=== PATIENT | male | born 1970 | race Caucasian/White ===

== ENCOUNTER 2018-12-22 11:40 | Inpatient (IN) | payer OTHER ==
[~2018-12-22] VITALS: Ht 175.3 cm; Wt 80.3 kg
[2018-12-22] VITALS (25 sets, daily range): BP systolic 71–166; BP diastolic 41–138
[2018-12-22] MEDS ORDERED: VANCOMYCIN 1 G PREMIX 200 ML IV ONE (12:15)
[2018-12-22] MEDS ORDERED: PIPERACILLIN/TAZ 3.375G PREMIX 50 ML IV ONE (12:15)
[2018-12-22] MEDS ORDERED: SODIUM CHLORIDE 0.9% 1000ML BAG (SEPSIS BOLUS) IV ONE (12:15)
[2018-12-22] MEDS ORDERED: LEVOFLOXACIN 750MG PREMIX 150 ML IV ONE (12:15)
[2018-12-22] MEDS ORDERED: PROPOFOL 10MG/ML 100ML 100 ML IV PRN (12:30)
[2018-12-22 12:33] LABS: BASOPHILS % 0.1 % (0.0-2.0); EOSINOPHILS % 0.2 % (0.0-5.0); HEMATOCRIT. 55.4 % (42.0-52.0); HEMOGLOBIN. 17.9 g/dL (14.0-18.0); LYMPHOCYTES % 9.2 % (20.0-50.0); MEAN CORPUSCULAR HEMOGLOBIN 28.2 pg (28.0-32.0); MEAN CORPUSCULAR VOLUME 86.9 fL (80.0-94.0); MEAN PLATELET VOLUME 8.1 fl (7.4-10.4); MONOCYTES % 4.9 % (2.0-8.0); NEUTROPHILS % 85.6 % (40.0-76.0); PLATELET 254 x1000/uL (130-400); RED BLOOD CELL COUNT 6.37 mill/uL (4.7-6.1); RED CELL DISTRIBUTION WIDTH 14.9 % (11.6-14.6)
[2018-12-22 12:39] LABS: CHLORIDE 105 mEq/L (98-107)
[2018-12-22 12:40] LABS: PROTHROMBIN TIME 10.3 sec (9.1-11.1)
[2018-12-22 12:43] LABS: ETHANOL BLOOD < 10 mg/dL
[2018-12-22 12:46] LABS: LDL CHOLESTEROL 96 mg/dL (5-100)
[2018-12-22 12:48] LABS: CREATINE KINASE 796 IU/L (39-308)
[2018-12-22 13:21] LABS: BG BASE EXCESS -8.1 mmol/L (-2.0-2.0); BG CARBOXYHEMOGLOBIN 2.4 % (0.5-1.5); BG DEOXYHEMOGLOBIN 2.5 % (0.0-5.0); BG FRACTION INSPIRED OXYGEN 100; BG HCO3 ACT 23.4 mmol/L (22.0-26.0); BG METHEMOGLOBIN 0.3 % (0.0-1.5); BG OXYGEN SATURATION 97.4 % (92.0-98.5); BG OXYHEMOGLOBIN 94.8 % (94.0-97.0); BG PCO2 73.1 mmHg (35.0-45.0); BG PH 7.124 (7.350-7.450); BG PO2 100.2 mmHg (75.0-100.0); BG SAMPLE SITE LEFT RADIAL; BG TIDAL VOLUME(mL) 475 mL; BG TOTAL HEMOGLOBIN 19.2 g/dL (12.0-18.0); BG VENT MODE VENT - A/C; BG VENT RATE 18 set
[2018-12-22 13:46] LABS: CLARITY URINE CLEAR (CLEAR); COLOR URINE YELLOW (YELLOW); KETONES URINE TRACE (NEGATIVE); LEUKOCYTE ESTERASE URINE NEGATIVE (NEGATIVE); NITRITE URINE NEGATIVE (NEGATIVE); OCCULT BLOOD URINE 2+ (NEGATIVE); PROTEIN URINE 2+ (NEGATIVE); SPECIFIC GRAVITY URINE 1.022 (1.005-1.030); UROBILINOGEN URINE 0.2 E.U./dL (0.2-1.0)
[2018-12-22 14:17] LABS: *AMPHETAMINES SCREEN URINE NEGATIVE (NEGATIVE); *BARBITURATES SCREEN URINE NEGATIVE (NEGATIVE); *BENZODIAZEPINES SCREEN URINE PRESUMTIVE POSITIVE (NEGATIVE); *COCAINE SCREEN URINE NEGATIVE (NEGATIVE); CANNABINOID URINE SCREEN PRESUMTIVE POSITIVE (NEGATIVE); METHADONE URINE SCREEN PRESUMTIVE POSITIVE (NEGATIVE); OPIATES URINE SCREEN PRESUMTIVE POSITIVE (NEGATIVE); PHENCYCLIDINE URINE SCREEN NEGATIVE (NEGATIVE)
[2018-12-22 15:06] LABS: BG BASE EXCESS -18.5 mmol/L (-2.0-2.0); BG CARBOXYHEMOGLOBIN 2.1 % (0.5-1.5); BG DEOXYHEMOGLOBIN 37.5 % (0.0-5.0); BG FRACTION INSPIRED OXYGEN 100; BG HCO3 ACT 9.8 mmol/L (22.0-26.0); BG METHEMOGLOBIN 0.3 % (0.0-1.5); BG OXYGEN SATURATION 61.6 % (92.0-98.5); BG OXYHEMOGLOBIN 60.1 % (94.0-97.0); BG PCO2 32.5 mmHg (35.0-45.0); BG PH 7.095 (7.350-7.450); BG PO2 < 30.3 mmHg (75.0-100.0); BG SAMPLE SITE RIGHT BRACHIAL; BG TIDAL VOLUME(mL) 500 mL; BG TOTAL HEMOGLOBIN 7.6 g/dL (12.0-18.0); BG VENT MODE VENT - A/C; BG VENT RATE 20 set
[2018-12-22] MEDS ORDERED: ONDANSETRON HCL 4MG/2ML INJ IV PRN (15:15)
[2018-12-22] MEDS ORDERED: ETOMIDATE 2MG/ML 10ML VIAL IV ONE (15:27)
[2018-12-22] MEDS ORDERED: VECURONIUM BROMIDE 10 MG/VIAL IV ONE (15:27)
[2018-12-22 15:49] LABS: BG BASE EXCESS -5.7 mmol/L (-2.0-2.0); BG CARBOXYHEMOGLOBIN 2.3 % (0.5-1.5); BG DEOXYHEMOGLOBIN 2.4 % (0.0-5.0); BG FRACTION INSPIRED OXYGEN 100; BG HCO3 ACT 24.4 mmol/L (22.0-26.0); BG METHEMOGLOBIN 0.2 % (0.0-1.5); BG OXYGEN SATURATION 97.5 % (92.0-98.5); BG OXYHEMOGLOBIN 95.1 % (94.0-97.0); BG PCO2 66.7 mmHg (35.0-45.0); BG PH 7.181 (7.350-7.450); BG PO2 95.7 mmHg (75.0-100.0); BG SAMPLE SITE RIGHT BRACHIAL; BG TIDAL VOLUME(mL) 500 mL; BG VENT MODE VENT - A/C; BG VENT RATE 20 set
[2018-12-22] MEDS ORDERED: IPRATROPIUM/ALBUTEROL 0.5-3(2.5)MG/3ML NEB HHN PRN (16:30)
[2018-12-22 16:37] LABS: HEPATITIS B SURFACE ANTIGEN NEGATIVE
[2018-12-22] MEDS ORDERED: LORAZEPAM 2MG/ML CPJ IV ONE (17:00)
[2018-12-22] MEDS ORDERED: LORAZEPAM 2MG/ML CPJ ONE (17:05)
[2018-12-22 17:07] LABS: HEPATITIS A AB IGM NEGATIVE (NEGATIVE)
[2018-12-22 17:31] LABS: BG BASE EXCESS -6.9 mmol/L (-2.0-2.0); BG CARBOXYHEMOGLOBIN 1.9 % (0.5-1.5); BG DEOXYHEMOGLOBIN 4.1 % (0.0-5.0); BG FRACTION INSPIRED OXYGEN 100; BG HCO3 ACT 25.3 mmol/L (22.0-26.0); BG METHEMOGLOBIN 0.4 % (0.0-1.5); BG OXYGEN SATURATION 95.8 % (92.0-98.5); BG OXYHEMOGLOBIN 93.6 % (94.0-97.0); BG PCO2 83.6 mmHg (35.0-45.0); BG PH 7.098 (7.350-7.450); BG PO2 84.5 mmHg (75.0-100.0); BG SAMPLE SITE RIGHT BRACHIAL; BG TIDAL VOLUME(mL) 500 mL; BG TOTAL HEMOGLOBIN 16.6 g/dL (12.0-18.0); BG VENT MODE VENT - A/C; BG VENT RATE 24 set
[2018-12-22] MEDS ORDERED: IPRATROPIUM/ALBUTEROL 0.5-3(2.5)MG/3ML NEB HHN SCH (18:00)
[2018-12-22] MEDS ORDERED: NOREPINEPHRINE 4 MG in DEXT 5% WATER 246 ML IV ONE (18:30)
[2018-12-22] MEDS ORDERED: NOREPINEPHRINE 4MG/250ML PMX 250 ML IV ONE (18:45)
[2018-12-22 20:51] LABS: BG BASE EXCESS -6.3 mmol/L (-2.0-2.0); BG CARBOXYHEMOGLOBIN 0.9 % (0.5-1.5); BG FRACTION INSPIRED OXYGEN 100; BG HCO3 ACT 21.7 mmol/L (22.0-26.0); BG METHEMOGLOBIN 0.3 % (0.0-1.5); BG OXYGEN SATURATION 89.9 % (92.0-98.5); BG OXYHEMOGLOBIN 88.8 % (94.0-97.0); BG PCO2 52.4 mmHg (35.0-45.0); BG PH 7.235 (7.350-7.450); BG SAMPLE SITE RIGHT BRACHIAL; BG TIDAL VOLUME(mL) 550 mL; BG TOTAL HEMOGLOBIN 16.1 g/dL (12.0-18.0); BG VENT MODE VENT - A/C; BG VENT RATE 26 set
[2018-12-22] MEDS: PROPOFOL 10MG/ML 100ML 100 ML IV PRN (21:18)
[2018-12-22] MEDS: DEXT 5%/0.45% NACL 1000ML 1,000 ML IV SCH (21:18)
[2018-12-22] MEDS: ENOXAPARIN 40MG/0.4ML SYR SUBCUT SCH (21:19)
[2018-12-22] MEDS: PIPERACILLIN/TAZ 3.375G PREMIX 50 ML IV SCH (22:22)
[2018-12-22] MEDS ORDERED: VANCOMYCIN 750 MG PREMIX 150 ML IV SCH (23:00)
[2018-12-23] VITALS (85 sets, daily range): BP systolic 80–144; BP diastolic 38–89
[2018-12-23] MEDS: NOREPINEPHRINE 8 MG in DEXT 5% WATER 492 ML IV PRN ×5 (01:49→20:16)
[2018-12-23] MEDS: IPRATROPIUM/ALBUTEROL 0.5-3(2.5)MG/3ML NEB HHN SCH ×4 (02:24→19:44)
[2018-12-23] MEDS: PIPERACILLIN/TAZ 3.375G PREMIX 50 ML IV SCH ×4 (04:44→21:17)
[2018-12-23] MEDS: PROPOFOL 10MG/ML 100ML 100 ML IV PRN ×3 (05:24→21:22)
[2018-12-23] MEDS: PHENYLEPHRINE 20 MG in DEXT 5% WATER 248 ML IV PRN ×5 (05:51→21:14)
[2018-12-23 06:24] LABS: BASOPHILS % 0.1 % (0.0-2.0); CHLORIDE 107 mEq/L (98-107); EOSINOPHILS % 0.8 % (0.0-5.0); HEMOGLOBIN. 13.9 g/dL (14.0-18.0); LYMPHOCYTES % 18.3 % (20.0-50.0); MEAN CORPUSCULAR HEMOGLOBIN 27.9 pg (28.0-32.0); MEAN CORPUSCULAR VOLUME 84.1 fL (80.0-94.0); MEAN PLATELET VOLUME 8.5 fl (7.4-10.4); MONOCYTES % 7.2 % (2.0-8.0); NEUTROPHILS % 73.6 % (40.0-76.0); PLATELET 227 x1000/uL (130-400); RED BLOOD CELL COUNT 4.99 mill/uL (4.7-6.1); RED CELL DISTRIBUTION WIDTH 14.8 % (11.6-14.6)
[2018-12-23 06:35] LABS: CREATINE KINASE 897 IU/L (39-308)
[2018-12-23 07:59] LABS: BG BASE EXCESS -5.6 mmol/L (-2.0-2.0); BG CARBOXYHEMOGLOBIN 0.3 % (0.5-1.5); BG DEOXYHEMOGLOBIN 3.2 % (0.0-5.0); BG HCO3 ACT 19.5 mmol/L (22.0-26.0); BG METHEMOGLOBIN 0.3 % (0.0-1.5); BG OXYGEN SATURATION 96.8 % (92.0-98.5); BG OXYHEMOGLOBIN 96.2 % (94.0-97.0); BG PCO2 36.9 mmHg (35.0-45.0); BG PH 7.341 (7.350-7.450); BG PO2 81.4 mmHg (75.0-100.0); BG SAMPLE SITE LEFT RADIAL; BG TIDAL VOLUME(mL) 550 mL; BG TOTAL HEMOGLOBIN 14.4 g/dL (12.0-18.0); BG VENT MODE VENT - A/C; BG VENT RATE 30 set
[2018-12-23] MEDS ORDERED: VASOPRESSIN 10 UNIT in SODIUM CHLORIDE 0.9% 99.5 ML IV PRN (08:45)
[2018-12-23] MEDS: VANCOMYCIN 1500MG in DEXTROSE 5% WATER 250ML IV SCH ×2 (11:21→20:19)
[2018-12-23] MEDS: DEXT 5%/0.45% NACL 1000ML 1,000 ML IV SCH (16:20)
[2018-12-23] MEDS: ENOXAPARIN 40MG/0.4ML SYR SUBCUT SCH (20:19)
[2018-12-24] VITALS (90 sets, daily range): BP systolic 89–132; BP diastolic 48–82
[2018-12-24] MEDS: NOREPINEPHRINE 8 MG in DEXT 5% WATER 492 ML IV PRN ×3 (00:47→21:40)
[2018-12-24] MEDS: IPRATROPIUM/ALBUTEROL 0.5-3(2.5)MG/3ML NEB HHN SCH ×4 (02:06→21:10)
[2018-12-24] MEDS: PIPERACILLIN/TAZ 3.375G PREMIX 50 ML IV SCH ×4 (04:04→21:41)
[2018-12-24] MEDS: DEXT 5%/0.45% NACL 1000ML 1,000 ML IV SCH ×3 (04:04→21:41)
[2018-12-24] MEDS: PROPOFOL 10MG/ML 100ML 100 ML IV PRN ×3 (04:04→21:49)
[2018-12-24 06:07] LABS: CHLORIDE 106 mEq/L (98-107)
[2018-12-24 06:09] LABS: HEMATOCRIT. 37.9 % (42.0-52.0); HEMOGLOBIN. 12.8 g/dL (14.0-18.0); MEAN CORPUSCULAR HEMOGLOBIN 27.6 pg (28.0-32.0); MEAN CORPUSCULAR VOLUME 81.9 fL (80.0-94.0); MEAN PLATELET VOLUME 8.5 fl (7.4-10.4); PLATELET 219 x1000/uL (130-400); RED BLOOD CELL COUNT 4.63 mill/uL (4.7-6.1); RED CELL DISTRIBUTION WIDTH 14.4 % (11.6-14.6)
[2018-12-24] MEDS ORDERED: POTASSIUM CHLORIDE 20MEQ/PACKET PO NR (08:45)
[2018-12-24] MEDS: VANCOMYCIN 1 G PREMIX 200 ML IV SCH ×2 (08:55→16:12)
[2018-12-24] MEDS: FAMOTIDINE 20MG/2ML VIAL IV SCH (09:01)
[2018-12-24 10:36] LABS: PLATELET ESTIMATE NORMAL
[2018-12-24] MEDS: MULTIVITAMINS,THER W-MINERALS TABLET NG SCH (11:42)
[2018-12-24] MEDS: FOLIC ACID 1MG TABLET NG SCH (11:42)
[2018-12-24] MEDS: THIAMINE HCL 100MG TABLET NG SCH (11:43)
[2018-12-24] MEDS: LACTULOSE 20G/30ML UDC PO SCH ×2 (13:49→21:41)
[2018-12-24 14:18] LABS: HIV SCREEN 4G Non Reactive (Non Reactive)
[2018-12-24] MEDS: ENOXAPARIN 40MG/0.4ML SYR SUBCUT SCH (21:41)
[2018-12-25] VITALS (69 sets, daily range): BP systolic 82–155; BP diastolic 47–82
[2018-12-25] MEDS: ACETAMINOPHEN 325MG TABLET PO PRN ×2 (00:29→20:15)
[2018-12-25] MEDS: VANCOMYCIN 1 G PREMIX 200 ML IV SCH ×3 (01:02→17:05)
[2018-12-25] MEDS: IPRATROPIUM/ALBUTEROL 0.5-3(2.5)MG/3ML NEB HHN SCH ×3 (02:06→20:19)
[2018-12-25] MEDS: PIPERACILLIN/TAZ 3.375G PREMIX 50 ML IV SCH ×4 (04:29→22:22)
[2018-12-25] MEDS: LACTULOSE 20G/30ML UDC PO SCH ×3 (05:49→22:00)
[2018-12-25 07:28] LABS: HEMATOCRIT. 36.8 % (42.0-52.0); HEMOGLOBIN. 11.9 g/dL (14.0-18.0); MEAN CORPUSCULAR HEMOGLOBIN 27.8 pg (28.0-32.0); MEAN CORPUSCULAR VOLUME 85.6 fL (80.0-94.0); MEAN PLATELET VOLUME 8.6 fl (7.4-10.4); RED CELL DISTRIBUTION WIDTH 15.1 % (11.6-14.6)
[2018-12-25 07:46] LABS: CHLORIDE 105 mEq/L (98-107)
[2018-12-25] MEDS: FAMOTIDINE 20MG/2ML VIAL IV SCH (08:26)
[2018-12-25] MEDS: THIAMINE HCL 100MG TABLET NG SCH (08:26)
[2018-12-25] MEDS: PROPOFOL 10MG/ML 100ML 100 ML IV PRN (08:26)
[2018-12-25] MEDS: FOLIC ACID 1MG TABLET NG SCH (08:26)
[2018-12-25] MEDS: MULTIVITAMINS,THER W-MINERALS TABLET NG SCH (08:26)
[2018-12-25 09:08] LABS: BG CARBOXYHEMOGLOBIN 0.3 % (0.5-1.5); BG DEOXYHEMOGLOBIN 0.8 % (0.0-5.0); BG FRACTION INSPIRED OXYGEN 100; BG HCO3 ACT 22.4 mmol/L (22.0-26.0); BG METHEMOGLOBIN 0.3 % (0.0-1.5); BG OXYGEN SATURATION 99.2 % (92.0-98.5); BG OXYHEMOGLOBIN 98.6 % (94.0-97.0); BG PCO2 29.2 mmHg (35.0-45.0); BG PH 7.502 (7.350-7.450); BG SAMPLE SITE RIGHT RADIAL; BG TIDAL VOLUME(mL) 550 mL; BG TOTAL HEMOGLOBIN 11.2 g/dL (12.0-18.0); BG VENT MODE VENT - A/C; BG VENT RATE 30 set
[2018-12-25 10:01] LABS: PLATELET ESTIMATE NORMAL
[2018-12-25 10:02] LABS: PLATELET 172 x1000/uL (130-400)
[2018-12-25] MEDS: DEXT 5%/0.45% NACL 1000ML 1,000 ML IV SCH ×2 (10:24→22:50)
[2018-12-25] MEDS ORDERED: POTASSIUM CHLORIDE INJ 40 MEQ in DEXT 5% WATER 250 ML IV NR (14:00)
[2018-12-25] MEDS: MORPHINE SULFATE 4 MG/ML CPJ (NOT FOR IM USE) IV PRN ×2 (15:43→19:40)
[2018-12-25] MEDS: LORAZEPAM 2MG/ML CPJ IM PRN ×2 (16:30→20:28)
[2018-12-25] MEDS: ENOXAPARIN 40MG/0.4ML SYR SUBCUT SCH (20:15)
[2018-12-26] VITALS (48 sets, daily range): BP systolic 105–147; BP diastolic 59–123
[2018-12-26] MEDS: DEXT 5%/0.45% NACL 1000ML 1,000 ML IV SCH ×3 (01:08→22:32)
[2018-12-26] MEDS: IPRATROPIUM/ALBUTEROL 0.5-3(2.5)MG/3ML NEB HHN SCH ×3 (02:26→22:05)
[2018-12-26 04:47] LABS: HEMATOCRIT. 31.8 % (42.0-52.0); HEMOGLOBIN. 10.7 g/dL (14.0-18.0); MEAN CORPUSCULAR HEMOGLOBIN 27.7 pg (28.0-32.0); MEAN CORPUSCULAR VOLUME 82.4 fL (80.0-94.0); MEAN PLATELET VOLUME 8.3 fl (7.4-10.4); PLATELET 170 x1000/uL (130-400); RED BLOOD CELL COUNT 3.86 mill/uL (4.7-6.1); RED CELL DISTRIBUTION WIDTH 15.2 % (11.6-14.6)
[2018-12-26 04:58] LABS: CHLORIDE 108 mEq/L (98-107)
[2018-12-26] MEDS: PIPERACILLIN/TAZ 3.375G PREMIX 50 ML IV SCH ×4 (05:32→22:32)
[2018-12-26] MEDS: LACTULOSE 20G/30ML UDC PO SCH (06:33)
[2018-12-26 07:41] LABS: BG BASE EXCESS 0.2 mmol/L (-2.0-2.0); BG CARBOXYHEMOGLOBIN 0.5 % (0.5-1.5); BG DEOXYHEMOGLOBIN 1.3 % (0.0-5.0); BG HCO3 ACT 23.4 mmol/L (22.0-26.0); BG METHEMOGLOBIN 0.2 % (0.0-1.5); BG OXYGEN SATURATION 98.7 % (92.0-98.5); BG PH 7.468 (7.350-7.450); BG PO2 145.2 mmHg (75.0-100.0); BG SAMPLE SITE RIGHT RADIAL; BG TIDAL VOLUME(mL) 550 mL; BG TOTAL HEMOGLOBIN 11.9 g/dL (12.0-18.0); BG VENT MODE VENT - A/C; BG VENT RATE 30 set
[2018-12-26 07:47] LABS: PLATELET ESTIMATE NORMAL
[2018-12-26] MEDS: FAMOTIDINE 20MG/2ML VIAL IV SCH (08:51)
[2018-12-26] MEDS: THIAMINE HCL 100MG TABLET NG SCH (08:51)
[2018-12-26] MEDS: MULTIVITAMINS,THER W-MINERALS TABLET NG SCH (08:51)
[2018-12-26] MEDS: FOLIC ACID 1MG TABLET NG SCH (08:51)
[2018-12-26] MEDS: MORPHINE SULFATE 4 MG/ML CPJ (NOT FOR IM USE) IV PRN ×2 (08:52→17:03)
[2018-12-26] MEDS ORDERED: POTASSIUM CHLORIDE INJ 40 MEQ in DEXT 5% WATER 250 ML IV NR (12:15)
[2018-12-26] MEDS: ENOXAPARIN 40MG/0.4ML SYR SUBCUT SCH (20:47)
[2018-12-27] VITALS (40 sets, daily range): BP systolic 101–130; BP diastolic 54–75
[2018-12-27] MEDS: IPRATROPIUM/ALBUTEROL 0.5-3(2.5)MG/3ML NEB HHN SCH ×5 (00:54→20:22)
[2018-12-27] MEDS: PIPERACILLIN/TAZ 3.375G PREMIX 50 ML IV SCH ×4 (04:15→22:23)
[2018-12-27 05:36] LABS: HEMATOCRIT. 30.1 % (42.0-52.0); HEMOGLOBIN. 10.2 g/dL (14.0-18.0); MEAN CORPUSCULAR VOLUME 82.3 fL (80.0-94.0); MEAN PLATELET VOLUME 8.7 fl (7.4-10.4); PLATELET 191 x1000/uL (130-400); RED BLOOD CELL COUNT 3.66 mill/uL (4.7-6.1); RED CELL DISTRIBUTION WIDTH 15.1 % (11.6-14.6)
[2018-12-27 05:42] LABS: CHLORIDE 109 mEq/L (98-107)
[2018-12-27] MEDS ORDERED: POTASSIUM CHLORIDE 20MEQ/PACKET PO NR (08:45)
[2018-12-27] MEDS: FAMOTIDINE 20MG/2ML VIAL IV SCH (09:04)
[2018-12-27] MEDS: MULTIVITAMINS,THER W-MINERALS TABLET NG SCH (09:04)
[2018-12-27] MEDS: THIAMINE HCL 100MG TABLET NG SCH (09:04)
[2018-12-27] MEDS: FOLIC ACID 1MG TABLET NG SCH (09:04)
[2018-12-27] MEDS: DEXT 5%/0.45% NACL 1000ML 1,000 ML IV SCH ×2 (10:07→20:50)
[2018-12-27 10:32] LABS: PLATELET ESTIMATE NORMAL
[2018-12-27] MEDS ORDERED: LACTULOSE 20G/30ML UDC PO PRN (11:15)
[2018-12-27] MEDS: LORAZEPAM 2MG/ML CPJ IM PRN (11:42)
[2018-12-27] MEDS: ACETYLCYSTEINE 100MG/ML 10% VIAL 4ML INH SCH (12:53)
[2018-12-27] MEDS: PROPOFOL 10MG/ML 100ML 100 ML IV PRN ×3 (12:53→23:31)
[2018-12-27] MEDS: ENOXAPARIN 40MG/0.4ML SYR SUBCUT SCH (20:04)
[2018-12-27] MEDS: ACETAMINOPHEN 325MG TABLET PO PRN (20:05)
[2018-12-28] VITALS (43 sets, daily range): BP systolic 96–155; BP diastolic 50–91
[2018-12-28] MEDS: ACETYLCYSTEINE 100MG/ML 10% VIAL 4ML INH SCH ×3 (00:37→15:30)
[2018-12-28] MEDS: IPRATROPIUM/ALBUTEROL 0.5-3(2.5)MG/3ML NEB HHN SCH ×6 (00:37→20:45)
[2018-12-28] MEDS: PIPERACILLIN/TAZ 3.375G PREMIX 50 ML IV SCH ×4 (03:25→21:22)
[2018-12-28] MEDS: PROPOFOL 10MG/ML 100ML 100 ML IV PRN ×2 (03:32→09:15)
[2018-12-28 05:18] LABS: BASOPHILS % 0.4 % (0.0-2.0); EOSINOPHILS % 1.5 % (0.0-5.0); HEMATOCRIT. 30.4 % (42.0-52.0); HEMOGLOBIN. 10.2 g/dL (14.0-18.0); MEAN CORPUSCULAR HEMOGLOBIN 27.8 pg (28.0-32.0); MEAN CORPUSCULAR VOLUME 82.7 fL (80.0-94.0); MONOCYTES % 12.9 % (2.0-8.0); NEUTROPHILS % 70.2 % (40.0-76.0); PLATELET 259 x1000/uL (130-400); RED BLOOD CELL COUNT 3.68 mill/uL (4.7-6.1); RED CELL DISTRIBUTION WIDTH 15.6 % (11.6-14.6)
[2018-12-28 05:26] LABS: CHLORIDE 110 mEq/L (98-107)
[2018-12-28] MEDS: FAMOTIDINE 20MG/2ML VIAL IV SCH (09:00)
[2018-12-28] MEDS: THIAMINE HCL 100MG TABLET NG SCH (09:14)
[2018-12-28] MEDS: MULTIVITAMINS,THER W-MINERALS TABLET NG SCH (09:14)
[2018-12-28] MEDS: DEXT 5%/0.45% NACL 1000ML 1,000 ML IV SCH ×2 (09:14→20:37)
[2018-12-28] MEDS: FOLIC ACID 1MG TABLET NG SCH (09:14)
[2018-12-28] MEDS: LORAZEPAM 2MG/ML CPJ IM PRN ×3 (10:16→19:42)
[2018-12-28] MEDS: MORPHINE SULFATE 4 MG/ML CPJ (NOT FOR IM USE) IV PRN ×3 (10:17→22:53)
[2018-12-28 12:41] LABS: BG BASE EXCESS 2.6 mmol/L (-2.0-2.0); BG CARBOXYHEMOGLOBIN 0.3 % (0.5-1.5); BG DEOXYHEMOGLOBIN 1.5 % (0.0-5.0); BG FRACTION INSPIRED OXYGEN 40; BG HCO3 ACT 26.7 mmol/L (22.0-26.0); BG METHEMOGLOBIN 0.3 % (0.0-1.5); BG OXYGEN SATURATION 98.5 % (92.0-98.5); BG OXYHEMOGLOBIN 97.9 % (94.0-97.0); BG PCO2 39.3 mmHg (35.0-45.0); BG PO2 133.2 mmHg (75.0-100.0); BG PRESSURE SUPPORT 12; BG SAMPLE SITE RIGHT RADIAL; BG TIDAL VOLUME(mL) 500 mL; BG TOTAL HEMOGLOBIN 10.8 g/dL (12.0-18.0); BG VENT MODE VENT - SIMV; BG VENT RATE 10 set
[2018-12-28] MEDS: FENTANYL CITRATE/PF 500 MCG in SODIUM CHLORIDE 0.9% 40 ML IV PRN ×2 (14:39→19:11)
[2018-12-28] MEDS: ENOXAPARIN 40MG/0.4ML SYR SUBCUT SCH (20:29)
[2018-12-29] VITALS (50 sets, daily range): BP systolic 96–136; BP diastolic 39–89
[2018-12-29] MEDS: ACETYLCYSTEINE 100MG/ML 10% VIAL 4ML INH SCH ×3 (00:20→15:29)
[2018-12-29] MEDS: IPRATROPIUM/ALBUTEROL 0.5-3(2.5)MG/3ML NEB HHN SCH ×6 (00:20→20:12)
[2018-12-29] MEDS: LORAZEPAM 2MG/ML CPJ IM PRN (00:58)
[2018-12-29] MEDS: FENTANYL CITRATE/PF 500 MCG in SODIUM CHLORIDE 0.9% 40 ML IV PRN (01:06)
[2018-12-29] MEDS: PIPERACILLIN/TAZ 3.375G PREMIX 50 ML IV SCH ×4 (03:37→21:26)
[2018-12-29 05:52] LABS: BASOPHILS % 0.5 % (0.0-2.0); EOSINOPHILS % 1.6 % (0.0-5.0); HEMATOCRIT. 27.2 % (42.0-52.0); HEMOGLOBIN. 9.3 g/dL (14.0-18.0); MEAN CORPUSCULAR HEMOGLOBIN 27.9 pg (28.0-32.0); MEAN CORPUSCULAR VOLUME 81.6 fL (80.0-94.0); MEAN PLATELET VOLUME 8.1 fl (7.4-10.4); MONOCYTES % 10.8 % (2.0-8.0); NEUTROPHILS % 71.1 % (40.0-76.0); PLATELET 347 x1000/uL (130-400); RED BLOOD CELL COUNT 3.33 mill/uL (4.7-6.1); RED CELL DISTRIBUTION WIDTH 15.6 % (11.6-14.6)
[2018-12-29 06:14] LABS: CHLORIDE 109 mEq/L (98-107)
[2018-12-29] MEDS: MORPHINE SULFATE 4 MG/ML CPJ (NOT FOR IM USE) IV PRN (06:22)
[2018-12-29] MEDS: FAMOTIDINE 20MG/2ML VIAL IV SCH (08:39)
[2018-12-29] MEDS: DEXT 5%/0.45% NACL 1000ML 1,000 ML IV SCH ×3 (09:06→21:28)
[2018-12-29 11:48] LABS: BG BASE EXCESS 1.2 mmol/L (-2.0-2.0); BG CARBOXYHEMOGLOBIN 0.6 % (0.5-1.5); BG DEOXYHEMOGLOBIN 1.3 % (0.0-5.0); BG FRACTION INSPIRED OXYGEN 40; BG HCO3 ACT 25.6 mmol/L (22.0-26.0); BG METHEMOGLOBIN 0.3 % (0.0-1.5); BG OXYGEN SATURATION 98.7 % (92.0-98.5); BG OXYHEMOGLOBIN 97.8 % (94.0-97.0); BG PCO2 39.8 mmHg (35.0-45.0); BG PH 7.426 (7.350-7.450); BG PRESSURE SUPPORT 8; BG SAMPLE SITE RIGHT RADIAL; BG TOTAL HEMOGLOBIN 10.6 g/dL (12.0-18.0); BG VENT MODE VENT - CPAP
[2018-12-29] MEDS ORDERED: POTASSIUM CHLORIDE INJ 40 MEQ in DEXT 5% WATER 250 ML IV SCH (13:00)
[2018-12-29] MEDS: MULTIVITAMINS,THER W-MINERALS TABLET NG SCH (14:59)
[2018-12-29] MEDS: THIAMINE HCL 100MG TABLET NG SCH (14:59)
[2018-12-29] MEDS: FOLIC ACID 1MG TABLET NG SCH (14:59)
[2018-12-29] MEDS: METHADONE HCL 10MG TABLET PO SCH (15:09)
[2018-12-29] MEDS: ENOXAPARIN 40MG/0.4ML SYR SUBCUT SCH (20:24)
[2018-12-30] VITALS (32 sets, daily range): BP systolic 96–177; BP diastolic 44–107
[2018-12-30] MEDS: IPRATROPIUM/ALBUTEROL 0.5-3(2.5)MG/3ML NEB HHN SCH ×5 (00:39→15:10)
[2018-12-30] MEDS: ACETYLCYSTEINE 100MG/ML 10% VIAL 4ML INH SCH ×3 (00:39→15:10)
[2018-12-30 05:11] LABS: BASOPHILS % 0.3 % (0.0-2.0); EOSINOPHILS % 1.9 % (0.0-5.0); HEMATOCRIT. 32.6 % (42.0-52.0); HEMOGLOBIN. 10.9 g/dL (14.0-18.0); LYMPHOCYTES % 19.8 % (20.0-50.0); MEAN CORPUSCULAR HEMOGLOBIN 27.4 pg (28.0-32.0); MEAN CORPUSCULAR VOLUME 82.3 fL (80.0-94.0); MONOCYTES % 8.3 % (2.0-8.0); NEUTROPHILS % 69.7 % (40.0-76.0); PLATELET 517 x1000/uL (130-400); RED BLOOD CELL COUNT 3.96 mill/uL (4.7-6.1); RED CELL DISTRIBUTION WIDTH 15.4 % (11.6-14.6)
[2018-12-30 05:33] LABS: CHLORIDE 109 mEq/L (98-107)
[2018-12-30] MEDS: DEXT 5%/0.45% NACL 1000ML 1,000 ML IV SCH (07:01)
[2018-12-30] MEDS ORDERED: POTASSIUM CHLORIDE 20MEQ TABLET SR PO NR (08:45)
[2018-12-30] MEDS: METHADONE HCL 10MG TABLET PO SCH (09:28)
[2018-12-30] MEDS: FOLIC ACID 1MG TABLET NG SCH (09:28)
[2018-12-30] MEDS: FAMOTIDINE 20MG/2ML VIAL IV SCH (09:28)
[2018-12-30] MEDS: MULTIVITAMINS,THER W-MINERALS TABLET NG SCH (09:29)
[2018-12-30] MEDS: THIAMINE HCL 100MG TABLET NG SCH (09:37)
[2018-12-30] MEDS: ENOXAPARIN 40MG/0.4ML SYR SUBCUT SCH (20:11)
[2018-12-31] VITALS: BP 101/56
[2018-12-31] MEDS: IPRATROPIUM/ALBUTEROL 0.5-3(2.5)MG/3ML NEB HHN SCH ×7 (00:33→23:46)
[2018-12-31 04:00] VITALS: BP 97/53
[2018-12-31 06:15] LABS: CHLORIDE 107 mEq/L (98-107)
[2018-12-31 06:22] LABS: BASOPHILS % 0.2 % (0.0-2.0); EOSINOPHILS % 1.7 % (0.0-5.0); HEMATOCRIT. 34.4 % (42.0-52.0); HEMOGLOBIN. 11.7 g/dL (14.0-18.0); LYMPHOCYTES % 21.8 % (20.0-50.0); MEAN CORPUSCULAR HEMOGLOBIN 27.9 pg (28.0-32.0); MEAN CORPUSCULAR VOLUME 81.9 fL (80.0-94.0); MEAN PLATELET VOLUME 7.7 fl (7.4-10.4); NEUTROPHILS % 68.3 % (40.0-76.0); PLATELET 662 x1000/uL (130-400); RED CELL DISTRIBUTION WIDTH 14.8 % (11.6-14.6)
[2018-12-31 08:00] VITALS: BP 114/61
[2018-12-31] MEDS: ACETYLCYSTEINE 100MG/ML 10% VIAL 4ML INH SCH ×3 (08:21→23:46)
[2018-12-31] MEDS: THIAMINE HCL 100MG TABLET NG SCH (09:24)
[2018-12-31] MEDS: MULTIVITAMINS,THER W-MINERALS TABLET NG SCH (09:24)
[2018-12-31] MEDS: FOLIC ACID 1MG TABLET NG SCH (09:24)
[2018-12-31] MEDS: FAMOTIDINE 20MG TABLET PO SCH (09:24)
[2018-12-31] MEDS: METHADONE HCL 10MG TABLET PO SCH (09:25)
[2018-12-31 16:00] VITALS: BP 113/65
[2018-12-31 20:00] VITALS: BP 105/59
[2018-12-31] MEDS: ENOXAPARIN 40MG/0.4ML SYR SUBCUT SCH (22:54)
[2019-01-01] VITALS: BP 104/63
[2019-01-01] MEDS: IPRATROPIUM/ALBUTEROL 0.5-3(2.5)MG/3ML NEB HHN SCH ×2 (03:13→09:12)
[2019-01-01 04:00] VITALS: BP 99/56
[2019-01-01 08:00] VITALS: BP 99/47
[2019-01-01] MEDS: ACETYLCYSTEINE 100MG/ML 10% VIAL 4ML INH SCH (09:12)
[2019-01-01] MEDS: METHADONE HCL 10MG TABLET PO SCH (10:56)
[2019-01-01] MEDS: THIAMINE HCL 100MG TABLET NG SCH (10:56)
[2019-01-01] MEDS: FOLIC ACID 1MG TABLET NG SCH (10:56)
[2019-01-01] MEDS: MULTIVITAMINS,THER W-MINERALS TABLET NG SCH (10:56)
[2019-01-01] MEDS: FAMOTIDINE 20MG TABLET PO SCH (10:56)
[2019-01-01 12:00] VITALS: BP 104/59
[2019-01-01 14:29] VITALS: BP 104/59
== END 2019-01-01 15:15 | disposition home or self-care (01) | DRG 720 ==
LOC: ER 11:53 → EDBEDREQ 12:34 → EDBEDREQSVC 12:34 → EDBEDREQTM 12:34 → MICUSO 16:52 → EDBEDREQ 16:55 → ENRESERV 17:19 → CANRESERV 17:19 → ENRESERV 18:10 → MICUNO 12-28 07:07 → 8WST 12-30 17:31
PROVIDERS: ADMIT Internal Medicine; ATTEND Internal Medicine
PROC: 5A1955Z Respiratory Ventilation, Greater than 96 Consecutive Hours (ICD-10-PCS; principal; 2018-12-22)
PROC: 0BH17EZ Insertion of Endotracheal Airway into Trachea, Via Natural or Artificial Opening (ICD-10-PCS; 2018-12-22)
PROC: 05HN33Z Insertion of Infusion Device into Left Internal Jugular Vein, Percutaneous Approach (ICD-10-PCS; 2018-12-22)
PROC: B544ZZA Ultrasonography of Left Jugular Veins, Guidance (ICD-10-PCS; 2018-12-22)
DX: A41.9 Sepsis, unspecified organism (principal); R57.9 Shock, unspecified; J96.02 Acute respiratory failure with hypercapnia; J69.0 Pneumonitis due to inhalation of food and vomit; G92 Toxic encephalopathy; E72.20 Disorder of urea cycle metabolism, unspecified; E87.2 Acidosis; L89.150 Pressure ulcer of sacral region, unstageable; L89.320 Pressure ulcer of left buttock, unstageable; B18.2 Chronic viral hepatitis C; T40.1X1A Poisoning by heroin, accidental (unintentional), initial encounter; D64.9 Anemia, unspecified; E87.6 Hypokalemia; D72.819 Decreased white blood cell count, unspecified; M62.82 Rhabdomyolysis; R74.0 Nonspecific elevation of levels of transaminase and lactic acid dehydrogenase [LDH]; K83.8 Other specified diseases of biliary tract; T40.3X1A Poisoning by methadone, accidental (unintentional), initial encounter; T40.7X1A Poisoning by cannabis (derivatives), accidental (unintentional), initial encounter; T42.4X1A Poisoning by benzodiazepines, accidental (unintentional), initial encounter; Y92.89 Other specified places as the place of occurrence of the external cause; Z78.1 Physical restraint status
CPT/HCPCS: 36415; 36569; 36600; 70551; 71045; 71250; 74176; 76937; 78580; 80048; 80202; 80305; 80307; 80329; 82140; 82270; 82375; 82550; 82805; 82962; 83036; 83605; 83721; 83735; 84134; 84145; 84478; 84484; 86705; 86709; 86803; 87070; 87340; 87389; 92610; 93005; 93970; 94002; 94003; 94640; 96365; 96366; 97116; 97162; 97166; 97530; 97535; 99291; A6261; C1725; J1650; J1956; J2060; J2270; J2370; J2543; J2704; J3010; J3370; J3480; J3490; J7030; J7060; J7608; J7620; A4315